=== PATIENT | male | born 2000 | race Hispanic/Latino ===

== ENCOUNTER 2021-09-16 23:21 | Emergency (ER) | payer OTHER, SELFPAY | END 2021-09-17 01:24 | disposition home or self-care (01) | LOC: ERS 23:21 | DX: S02.672A Fracture of alveolus of left mandible, initial encounter for closed fracture (principal); F17.210 Nicotine dependence, cigarettes, uncomplicated; Y04.0XXA Assault by unarmed brawl or fight, initial encounter | CPT/HCPCS: 70486 ==

== ENCOUNTER 2021-09-18 10:39 | Observation (INO) | payer OTHER, SELFPAY ==
[2021-09-18 11:54] LABS: SARS-CoV-2 NAA Rapid Test Not Detected (NotDetected)
[2021-09-18 14:27] LABS: #Lymphocytes 2.2 thou/uL (1.20-3.40); #Monocytes 1.2 thou/uL (0.11-0.59); #Neutrophils 9.5 thou/uL (1.40-6.50); %Basophils 0.2 % (0.0-1.0); %Eosinophils 0.3 % (0.0-10.0); %Lymphocytes 17.1 % (21.0-51.0); %Neutrophils 73.4 % (42.0-75.0); Hemoglobin 15.2 g/dL (14.0-18.0); Mean Corpuscular Hemoglobin 30.7 pg (27.0-31.0); Mean Corpuscular Volume 87.8 fL (78.0-98.0); Mean Platelet Volume 6.6 fL (7.4-10.4); Platelet Count 238 thou/uL (130-400); RBC Distribution Width 11.4 % (11.5-14.5); Red Blood Cell (RBC) Count 4.96 mill/uL (4.70-6.10)
[2021-09-18] MEDS ORDERED: Chlorhexidine Gluconate 15 ML UDCUP SSP ONE (15:07)
[2021-09-18] MEDS ORDERED: Bacitracin Zinc Ointment 30 gm TUBE ONE (15:07)
[2021-09-18] MEDS ORDERED: Xylocaine 1% w/ Epi 1:100K 10 ML VIAL ONE (15:07)
[2021-09-18] MEDS ORDERED: HYDROmorphone 0.5 MG/0.5 ML SYRINGE ONE (15:37)
[2021-09-18] MEDS ORDERED: Fentanyl 250 MCG/5 ML VIAL ONE ×2 (15:37→19:34)
[2021-09-18] MEDS ORDERED: SUGAMMADEX SODIUM 200 MG/2 ML VIAL ONE (15:38)
[2021-09-18] MEDS ORDERED: AFRIN NASAL MIST 15 ML BOT ONE (15:43)
[2021-09-18] MEDS ORDERED: Midazolam HCl 2 mg/2 ml Vial ONE (16:02)
[2021-09-18] MEDS ORDERED: Clindamycin/D5W 900 mg/50 ml Premix Bag ONE (16:05)
[2021-09-18] MEDS ORDERED: Lidocaine 1% PF 5 ML VIAL ONE (16:13)
[2021-09-18] MEDS ORDERED: Ketorolac Tromethamine 30 MG/ML VIAL ONE (16:13)
[2021-09-18] MEDS ORDERED: Dexamethasone 20 MG/5 ML VIAL ONE (16:13)
[2021-09-18] MEDS ORDERED: Rocuronium Bromide 10 MG/ML (10ML VIAL) ONE (16:13)
[2021-09-18] MEDS ORDERED: Ondansetron PF 4 MG/2 ML Vial ONE ×2 (16:13→19:17)
[2021-09-18] MEDS ORDERED: PROPOFOL 200 MG/20 ML VIAL ONE (16:13)
[2021-09-18] MEDS ORDERED: Ondansetron PF 4 MG/2 ML Vial IVP PRN (19:23)
[2021-09-18] MEDS ORDERED: Hydrocodone-Acetamin 15 ML UDCUP PO PRN (19:24)
[2021-09-18] MEDS ORDERED: Morphine 4 MG/ML VIAL SLOW IVP PRN (19:29)
[2021-09-18] MEDS ORDERED: Promethazine HCl 25 MG/ML VIAL ONE (19:51)
[2021-09-18] MEDS: Clindamycin/D5W 900 MG in Premix Bag 1 BAG IVPB SCH (22:18)
[2021-09-18] MEDS: D5 0.9% NS w/ 20 mEq KCl 1,000 ML IV SCH (22:18)
[2021-09-18] MEDS: Chlorhexidine Gluconate 15 ML UDCUP SSP SCH (22:18)
[2021-09-18] MEDS: Ibuprofen 100 MG/5 ML UDCUP PO SCH (22:43)
[2021-09-19] MEDS: Ibuprofen 100 MG/5 ML UDCUP PO SCH ×2 (05:30→11:59)
[2021-09-19] MEDS: Chlorhexidine Gluconate 15 ML UDCUP SSP SCH (08:07)
[2021-09-19] MEDS: Clindamycin/D5W 900 MG in Premix Bag 1 BAG IVPB SCH (08:07)
[2021-09-19 11:28] VITALS: BP 132/63; TEMP 97.7
[2021-09-19] MEDS: D5 0.9% NS w/ 20 mEq KCl 1,000 ML IV SCH (11:58)
== END 2021-09-19 12:18 | disposition home or self-care (01) ==
LOC: SDC 10:39 → SURG B 19:24
PROVIDERS: ADMIT Dentist Oral and Maxillofacial Surgery; ATTEND Dentist Oral and Maxillofacial Surgery
PROC: 0NSV04Z Reposition Left Mandible with Internal Fixation Device, Open Approach (ICD-10-PCS; principal; 2021-09-18)
PROC: 2W31X9Z Immobilization of Face using Wire (ICD-10-PCS; 2021-09-18)
DX: S02.652B Fracture of angle of left mandible, initial encounter for open fracture (principal); Z20.822 Contact with and (suspected) exposure to COVID-19; W50.0XXA Accidental hit or strike by another person, initial encounter
CPT/HCPCS: 70486; 85025; 96365; 96376; C1713; C1788; G0378; J1100; J1170; J1885; J2250; J2405; J2550; J2704; J3010; J3480; J3490; U0002

== ENCOUNTER 2021-12-04 09:03 | Outpatient (CLI) | payer SELFPAY ==
[2021-12-04 20:28] LABS: SARS-CoV-2 PCR by NAA Not Detected (NotDetected)
== END 2021-12-04 09:04 | disposition home or self-care (01) ==
LOC: LABBT 09:03
PROVIDERS: ATTEND Dentist Oral and Maxillofacial Surgery
DX: K04.7 Periapical abscess without sinus (principal); Z20.822 Contact with and (suspected) exposure to COVID-19
CPT/HCPCS: U0003; U0005

== ENCOUNTER 2021-12-05 06:18 | Observation (INO) | payer OTHER ==
[2021-12-05] MEDS ORDERED: Midazolam HCl 2 mg/2 ml Vial ONE (06:46)
[2021-12-05] MEDS ORDERED: Lidocaine 2% Jelly 5 ML TUBE ONE (06:47)
[2021-12-05] MEDS ORDERED: fentaNYL Citrate/PF 100 MCG/2 ML SYRINGE ONE ×2 (06:47→09:45)
[2021-12-05] MEDS ORDERED: Lidocaine 1% w/Epinephrine 1:100K 20 ML VIAL ONE (07:23)
[2021-12-05] MEDS ORDERED: Chlorhexidine Gluconate 15 ML UDCUP SSP ONE ×3 (07:23→09:03)
[2021-12-05] MEDS ORDERED: AFRIN NASAL MIST 15 ML BOT ONE (07:34)
[2021-12-05] MEDS ORDERED: Clindamycin/D5W 900 mg/50 ml Premix Bag ONE (07:35)
[2021-12-05] MEDS ORDERED: PHENYLEPHRINE-NS 100 MCG/ML 10 ML SYRINGE ONE (07:41)
[2021-12-05] MEDS ORDERED: Lidocaine 1% PF 5 ML VIAL ONE (07:41)
[2021-12-05] MEDS ORDERED: Dexamethasone 20 MG/5 ML VIAL ONE (07:41)
[2021-12-05] MEDS ORDERED: Ketorolac Tromethamine 30 MG/ML VIAL ONE (07:41)
[2021-12-05] MEDS ORDERED: Rocuronium Bromide 10 MG/ML (10ML VIAL) ONE (07:41)
[2021-12-05] MEDS ORDERED: Ondansetron PF 4 MG/2 ML Vial ONE (07:41)
[2021-12-05] MEDS ORDERED: Glycopyrrolate 0.2 MG/ML 5 ML SYRINGE ONE (07:41)
[2021-12-05] MEDS ORDERED: PROPOFOL 200 MG/20 ML VIAL ONE (07:41)
[2021-12-05] MEDS ORDERED: Neomycin-Polymyxin 1 ML AMP ONE (09:03)
[2021-12-05] MEDS ORDERED: Bacitracin Zinc Ointment 30 gm TUBE ONE (09:50)
[2021-12-05] MEDS ORDERED: Non-Formulary Medication 1 EACH PO PRN (10:21)
[2021-12-05] MEDS ORDERED: Promethazine HCl 25 MG/ML VIAL IM/IV PRN (10:30)
[2021-12-05] MEDS ORDERED: Ondansetron HCl/PF 4 MG/2 ML Vial IVP PRN (10:30)
[2021-12-05 12:44] VITALS: BP 107/60; TEMP 97.6
[2021-12-05] MEDS ORDERED: Clindamycin/D5W 900 MG in Premix Bag 1 BAG IVPB SCH (13:30)
== END 2021-12-05 16:25 | disposition home or self-care (01) ==
LOC: SDC 06:18 → MSONC 10:16
PROVIDERS: ADMIT Dentist Oral and Maxillofacial Surgery; ATTEND Dentist Oral and Maxillofacial Surgery
PROC: 0CDXXZ1 Extraction of Lower Tooth, Multiple, External Approach (ICD-10-PCS; principal; 2021-12-05)
PROC: 0NPW04Z Removal of Internal Fixation Device from Facial Bone, Open Approach (ICD-10-PCS; 2021-12-05)
PROC: 0NBV0ZZ Excision of Left Mandible, Open Approach (ICD-10-PCS; 2021-12-05)
DX: S02.652K Fracture of angle of left mandible, subsequent encounter for fracture with nonunion (principal); M27.2 Inflammatory conditions of jaws; K04.1 Necrosis of pulp; K05.30 Chronic periodontitis, unspecified; K01.1 Impacted teeth; Z79.2 Long term (current) use of antibiotics; X58.XXXD Exposure to other specified factors, subsequent encounter; Y09 Assault by unspecified means
CPT/HCPCS: 96374; G0378; J1100; J1885; J2250; J2405; J2704; J3490